=== PATIENT | male | born 1995 | race Two or more races ===

== ENCOUNTER 2025-06-24 13:40 | Emergency (ER) | payer OTHER ==
[~2025-06-24] VITALS: Ht 182.9 cm; Wt 68.0 kg
[2025-06-24] MEDS ORDERED: ONDANSETRON HCL 2 MG/ML VIAL ONE (15:08)
[2025-06-24] MEDS ORDERED: DICYCLOMINE HCL 10 MG CAPSULE PO ONE (15:09)
[2025-06-24] MEDS ORDERED: FAMOTIDINE/PF 20 MG/2 ML VIAL ONE (15:09)
[2025-06-24] MEDS ORDERED: 0.9 % SODIUM CHLORIDE 1,000 ML IV ONE (15:15)
[2025-06-24] MEDS ORDERED: ONDANSETRON HCL 2 MG/ML VIAL IV ONE (15:15)
[2025-06-24] MEDS ORDERED: DICYCLOMINE HCL 20 MG TABLET PO ONE (15:15)
[2025-06-24] MEDS ORDERED: FAMOtidine 10 MG/ML (4ML VIAL) IV ONE (15:15)
[2025-06-24 15:47] LABS: BASO % 0.2 % (0.1-1.2); EOS # 0.01 (0.04-0.54); EOS % 0.1 % (0.7-7.0); LYMPH # 0.90 (1.18-3.74); LYMPH % 7.4 % (19.3-53.1); MEAN PLATELET VOLUME 11.80 fl (9.4-12.4); MONO # 0.85 (0.24-0.82); MONO % 7.0 % (4.7-12.5); NEUT # 10.39 (1.56-6.13); NEUT % 84.9 % (34.0-71.1); RED CELL DISTRIBUTION WIDTH 11.5 % (11.6-14.4)
[2025-06-24] MEDS ORDERED: CIPROFLOXACIN IN 5 % DEXTROSE 400 MG/200 ML PIGGYBAG IV ONE ×2 (16:08→16:15)
[2025-06-24 16:14] LABS: COVID-19 AG NEGATIVE (NEGATIVE)
[2025-06-24 16:22] LABS: ALT/SGPT 70.0 U/L (12-78); AST/SGOT 74.0 U/L (15-37); BILIRUBIN TOTAL 1.59 mg/dL (0.3-1.2); BUN CREA RATIO 11.0 (7.0-25.0); CREATININE SERUM 1.0 mg/dL (0.70-1.30); GFR 87.74; GLOBULINA 4.0 G/DL (2.4-3.5); GLUCOSE FASTING 85.0 mg/dL (65-100); OSMOLALITY SERUM 276.0 MOSM/KG (275-295)
[2025-06-24] MEDS ORDERED: DIPHENOXYLATE HCL/ATROPINE 1 UDTAB TABLET PO STA (19:34)
== END 2025-06-24 20:26 | disposition home or self-care (01) ==
LOC: ER 13:40
PROVIDERS: General Practice
DX: K52.9 Noninfective gastroenteritis and colitis, unspecified (principal); Z20.822 Contact with and (suspected) exposure to COVID-19; Z87.09 Personal history of other diseases of the respiratory system